=== PATIENT | male | born 1995 | race American Indian/Alaskan Native ===

== ENCOUNTER 2017-10-19 21:39 | Inpatient (IN) | payer MEDICAID, OTHER ==
[2017-10-19 21:39] VITALS: BMI 53.0
--- NOTE | 2017-10-19 21:57 | ED PDOC ---
HPI: Psych/Substance Abuse Time Seen by Provider: 10/19/17 21:55 Chief Complaint (Nursing): Psychiatric Evaluation Chief Complaint (Provider): crisis eval History Per: Patient Additional Complaint(s): 22 y/o male presents to ED for crisis eval. Patient states he has had suicidal and homicidal ideation for the past several years but he felt worse today so he called Police to be brought here. He is supposed to take psych meds but admits to being non-compliant with his meds for the past month. Patient denies any alcohol or drug use. PMD: none Past Medical History Reviewed: Historical Data, Nursing Documentation, Vital Signs Vital Signs: Last Vital Signs Temp 98.0 F 10/19/17 21:46 Pulse 104 H 10/19/17 21:46 Resp 16 10/19/17 21:46 BP 146/89 10/19/17 21:46 Pulse Ox 98 10/19/17 21:46 - Medical History PMH: Asthma, Depression, Fractures (Left Femur), Sleep Apnea - Surgical History Other surgeries: left knee surgery, ear tubes - Family History Family History: States: No Known Family Hx - Living Arrangements Living Arrangements: With Family - Social History Current smoker - smoking cessation education provided: No Alcohol: None Drugs: Denies - Home Medications Home Medications: Ambulatory Orders Medication Instructions Recorded Duloxetine HCl 1 tab PO BID 01/10/17 - Allergies Allergies/Adverse Reactions: Allergies Allergy/AdvReac Type Severity Reaction Status Date / Time broccoli Allergy RASH Verified 10/19/17 21:46 carrot Allergy RASH Verified 10/19/17 21:46 Penicillins Allergy RASH Verified 10/19/17 21:46 tegaderm Allergy RASH Uncoded 10/19/17 21:46 Review of Systems ROS Statement: Except As Marked, All Systems Reviewed And Found Negative Psych: Positive for: Other (suicidal and homicidal ideation, denies plan) Physical Exam - Reviewed Nursing Documentation Reviewed: Yes Vital Signs Reviewed: Yes - Physical Exam Appears: Positive for: Well, Non-toxic, No Acute Distress Skin: Positive for: Normal Color. Negative for: Rash Eye Exam: Positive for: Normal appearance Cardiovascular/Chest: Positive for: Regular Rate, Rhythm Respiratory: Positive for: Normal Breath Sounds. Negative for: Wheezing Extremity: Positive for: Normal ROM Neurologic/Psych: Positive for: Alert, Oriented - Laboratory Results Result Diagrams: 10/19/17 23:31 08/16/18 23:31 - ECG O2 Sat by Pulse Oximetry: 98 Pulse Ox Interpretation: Normal - Other Rad CXR X-Ray: Interpreted by Me, Viewed By Me X-Ray Interpretation: no acute finding Medical Decision Making Medical Decision Makin22 year old male with suicidal or homicidal ideation. Plan: 1:1 observation Crisis eval CBC CMP BAL UDS UA As per crisis counselor and psychiatrist transportation job titles, Dr. Almanzar, patient does meet criteria for admission. Patient agrees to sign himself in. Disposition - Clinical Impression Clinical Impression: Depression - Patient ED Disposition Is Patient to be Admitted: Transfer of Care - Disposition Disposition: Transfer of Care Disposition Time: 23:51 Condition: STABLE Forms: [employer] [employer] [facility] (Eritrean) Patient Signed Over To: Leona Velasco Handoff Comments: Signed out pending medical clearance and final disposition
[2017-10-19 23:41] LABS: BASO % 0.4 % (0.0-2.0); EOS # 0.1 K/uL (0.0-0.7); EOS % 1.4 % (0.0-4.0); HEMOGLOBIN 14.4 g/dL (12.0-18.0); LYMPH # 0.9 K/uL (1.0-4.3); LYMPH % 22.3 % (20.0-40.0); MEAN CELL VOLUME 80.2 fl (80.0-94.0); MEAN CORPUSCULAR HEMOGLOBIN 26.3 pg (27.0-31.0); MEAN CORPUSCULAR HGB CONC 32.7 g/dL (33.0-37.0); MEAN PLATELET VOLUME 9.5 fl (7.2-11.7); MONO # 0.5 K/uL (0.0-0.8); MONO % 10.9 % (0.0-10.0); NEUT # 2.7 K/uL (1.8-7.0); RBC 5.47 Mil/uL (4.40-5.90); RED CELL DISTRIBUTION WIDTH 13.7 % (11.5-14.5); WHITE BLOOD COUNT 4.2 K/uL (4.8-10.8)
[2017-10-19 23:53] LABS: ALB/GLOB RATIO 1.5 (1.0-2.1); ALBUMIN 4.6 g/dL (3.5-5.0); ALT/SGPT 35 U/L (21-72); AST/SGOT 28 U/L (17-59); BLOOD UREA NITROGEN 9 mg/dl (9-20); CALCIUM 9.9 mg/dL (8.4-10.2); GFR AFRICAN-AMERICAN > 60; GFR NON-AFRICAN AMERICAN > 60
--- NOTE | 2017-10-20 00:03 | ED PDOC ---
- Laboratory Results Result Diagrams: 10/19/17 23:31 10/19/17 23:31 - ECG O2 Sat by Pulse Oximetry: 98 (RA) Pulse Ox Interpretation: Normal Medical Decision Making Medical Decision Making: Case endorsed to press writer, Krista LARES, at 0000 pending urine results/medical clearance for psychiatric admission. Patient to be admitted per Dr Almanzar for depression. Pertinent details reviewed. Patient will remain under 1:1 observation. CBC and CMP grossly unremarkable. Serum Alcohol <10. CXR: NAD as read by LUDA 0030 Repeat HR: 86 Repeat BP: 153/98 EKG ordered. Patient offers no physical complaints at this time. 0110 EKG: NSR @ 75bpm (-) ST elevation (-) ectopy, QTc 395 0155 U/A reviewed and grossly unremarkable Utox reviewed: negative Patient is medically stable for psychiatric admission. Arrangements made for psychiatric admission. Disposition Discussed With Dr.: Berna Almanzar Doctor Will See Patient In The: Hospital Counseled Patient/Family Regarding: Studies Performed, Diagnosis - Clinical Impression Clinical Impression: Depression - POA Present On Arrival: None - Disposition Disposition: Admitted as In-Patient Disposition Time: 02:14 Condition: FAIR Results - Lab Results Lab Results: 10/20/17 10/20/17 10/19/17 00:40 00:40 23:31 WBC 4.2 L RBC 5.47 Hgb 14.4 Hct 43.9 MCV 80.2 MCH 26.3 L MCHC 32.7 L RDW 13.7 Plt Count 193 MPV 9.5 Neut % (Auto) 65.0 Lymph % (Auto) 22.3 [place] % (Auto) 10.9 H Eos % (Auto) 1.4 Baso % (Auto) 0.4 Neut # (Auto) 2.7 Lymph # (Auto) 0.9 L [place] # (Auto) 0.5 Eos # (Auto) 0.1 Baso # (Auto) 0.0 Sodium Potassium Chloride Carbon Dioxide Anion Gap BUN Creatinine Est GFR ( Amer) Est GFR (Non-Af Amer) Random Glucose Calcium Total Bilirubin AST ALT Alkaline Phosphatase Total Protein Albumin Globulin Albumin/Globulin Ratio Urine Color Yellow Urine Clarity Slighty-cloudy Urine pH 7.0 Ur Specific [place] 1.017 Urine Protein Negative Urine Glucose (UA) Neg Urine Ketones Negative Urine Blood Negative Urine Nitrate Negative Urine Bilirubin Negative Urine Urobilinogen 0.2-1.0 Ur Leukocyte Esterase Neg Urine RBC (Auto) 1 Urine Microscopic WBC < 1 Ur Squamous Epith Cells 3 Urine Bacteria Rare Urine Opiates Screen Negative Urine Methadone Screen Negative Ur Barbiturates Screen Negative Ur Phencyclidine Scrn Negative Ur Amphetamines Screen Negative U Benzodiazepines Scrn Negative U Oth Cocaine Metabols Negative U Cannabinoids Screen Negative Alcohol, Quantitative 10/19/17 23:31 WBC RBC Hgb Hct MCV MCH MCHC RDW Plt Count MPV Neut % (Auto) Lymph % (Auto) [place] % (Auto) Eos % (Auto) Baso % (Auto) Neut # (Auto) Lymph # (Auto) [place] # (Auto) Eos # (Auto) Baso # (Auto) Sodium 140 Potassium 4.1 Chloride 99 Carbon Dioxide 32 H Anion Gap 13 BUN 9 Creatinine 0.8 Est GFR ( Amer) > 60 Est GFR (Non-Af Amer) > 60 Random Glucose 97 Calcium 9.9 Total Bilirubin 0.5 AST 28 ALT 35 Alkaline Phosphatase 57 Total Protein 7.6 Albumin 4.6 Globulin 3.0 Albumin/Globulin Ratio 1.5 Urine Color Urine Clarity Urine pH Ur Specific [place] Urine Protein Urine Glucose (UA) Urine Ketones Urine Blood Urine Nitrate Urine Bilirubin Urine Urobilinogen Ur Leukocyte Esterase Urine RBC (Auto) Urine Microscopic WBC Ur Squamous Epith Cells Urine Bacteria Urine Opiates Screen Urine Methadone Screen Ur Barbiturates Screen Ur Phencyclidine Scrn Ur Amphetamines Screen U Benzodiazepines Scrn U Oth Cocaine Metabols U Cannabinoids Screen Alcohol, Quantitative < 10
[2017-10-20 01:05] LABS: SQUAMOUS EPITHIAL 3 /hpf (0-5); URINE BACTERIA RARE (<OCC); URINE BILIRUBIN NEGATIVE (NEGATIVE); URINE BLOOD NEGATIVE (NEGATIVE); URINE CLARITY SLIGHTY-CLOUDY (Clear); URINE COLOR YELLOW (YELLOW); URINE GLUCOSE (UA) NEG (Normal); URINE LEUKOCYTE ESTERASE NEG Leu/uL (Negative); URINE PROTEIN NEGATIVE (NEGATIVE); URINE UROBILINOGEN 0.2-1.0 mg/dL (0.2-1.0)
[2017-10-20 01:20] LABS: OPIATES, UR NEGATIVE (NEGATIVE)
[2017-10-20 01:24] LABS: BARBITURATES, UR NEGATIVE (NEGATIVE); BENZODIAZEPINES, UR NEGATIVE (NEGATIVE); PHENCYCLIDINE, UR NEGATIVE (NEGATIVE)
[2017-10-20 04:32] VITALS: O2SAT 100
[2017-10-20] MEDS ORDERED: Magnesium Hydroxide Susp 30 ml UD PO PRN (04:38)
[2017-10-20] MEDS ORDERED: DiphenhydrAMINE 50 mg/ml Inj IM PRN (04:38)
[2017-10-20] MEDS ORDERED: Alum-Mag Hydrox-Simethicone Susp (30 mL) PO PRN (04:38)
--- NOTE | 2017-10-20 04:55 | PCM.BM ---
<Karissa Kitchenar - Last Filed: 10/20/17 04:47> Treatment Plan Problems - Problems identified on initial assessmt Feeling of Worthlessness Date Initiated: 10/20/17 Time Initiated: 04:48 Assessment reference: NA Status: Active Priority: 1 Medication Nonadherence Date Initiated: 10/20/17 Time Initiated: 04:48 Assessment reference: NA Status: Active Priority: 2 Treatment assets and liabiliti Patient Assests: adapts well, cooperative, resourceful, good support system, negotiates basic needs Patient Liabilities: other (non compliance to medications, learning disability) - Milieu Protocol Maintain good personal hygiene: daily Encourage regular showers, daily Remind patient to perform daily oral care, daily Assist patient to perform ADL's Maintain personal safety: every shift Educate patient to report safety concerns to staff, every shift Monitor environment for contraband/sharps Medication safety: Monitor for expected outcome, potential side effects: every shift, Assess barriers to learning: every shift, Assess readiness for medication education: every shift <Peterson Guerrero - Last Filed: 10/23/17 14:59> Family Contact Family involvement: Family/SO is involved Family contact: Patient declines to allow family contact at present Family contact name: Pt denied. Family contacted how many times per week?: 0 - Outside Agency Agency 1 Care involvment: Not involved Agency contact name: [facility] Agency contact number: [phone] - Goals for Treatment Patient goals for treatment: Pt offered any goals for treatment, yet asked to be referred to another outpatient treatment provider. Discharge/Continuing Care - Education Needs Education Needs: Patient Medication, Patient Diagnosis/Disease Process, Patient Coping Skills, Patient Community resources, Patient Aftercare Safety Plan - Discharge Discharge Criteria: Tolerates medication w/o severe side effects, Free of Suicidal thoughts, Free of Homicidal thoughts, Free of agitation, Normal sleep pattern, Reduction of target symptoms Discharge to:: Home, With Family - Treatment Team Participation Patient/Family/SO Statement: 10/23/17 15:01 Pt reported that he is feeling better and is motivated to learn better coping skills to better handle his stressors in life. Pt requested a letter of hospitalization for school. Staff explained 48 hour notice and intention to discharge pt on 10/24/17. Analytical Statistician informed pt that intake packet was faxed to Noelle Salazar at [facility]. Discussed with Family/SO: No Was Patient/Family/SO present at Treatment Team Meeting: Yes <Beran Almanzar - Last Filed: 10/24/17 12:58> - Diagnosis (1) Depression Status: Acute Interventions: psychotherapy, pharmacotherapy 10/24/17 11:34
[2017-10-20 06:59] LABS: T4 8.31 ug/dl (5.5-11.0)
--- NOTE | 2017-10-20 08:30 | CARD ---
APPROVED REPORT Date of service: 10/20/2017 <Conclusion> Normal sinus rhythm Normal ECG
--- NOTE | 2017-10-20 08:53 | PCM.PSYCH ---
Initial Psychiatric Evaluation - Initial Psychiatric Evaluation Type of Admission: Voluntary Legal Status: Capacity Chief Complaint (in patient's own words): "I was having suicidal thoughts." Patient's Reaction to Hospitalization: HPI: 22 yo male w/ h/o Bipolar disorder vs MDD, ADHD, remote history of psychosis, presents w/ worsening depression and anxiety, suicidal ideation w/ plan to cut his wrists, feelings of helplessness/hopelessness, sleep/appetite disturbances, in the context of non-compliance with medications. Denies AH/VH/ paranoia/delusions. Patient does not want to restart Duloxetine or Lexapro. As per ER report: Collateral information obtained from the pt.s mother, Claudia Chamberlain, ([phone]) who reported that she called the police because the pt. expressed SI., also reporting that the pt. said he was depressed and suggested that he wanted to be with his uncle that . The pt.s mother also reported that the pt. expressed that he is overwhelmed by his current life stressors. The pt.s mother reported that the pt. was advised to attend [facility] but does not attend consistently. The pt.s mother reported that the pt. would benefit from inpatient treatment. The pt.s mother reported that the pt. does not take his psychotropic medications consistently. PPHx: Outpatient psychiatric treatment w. Dr. Stoddard; non-compliant w/ Duloxetine and Lexapro; he reports compliance with Vyvanse, h/o previous psychiatric admission including at [facility]; h/o SA in 02/2017 by OD of 4-5 pills of Ambien; Patient reports that providers have recommended he take [place] in the past but he has not been agreeable, "I don't take medications on the periodic table." PMHx: Asthma, Obesity; h/o breaking L femur and subsequently having surgery in 2011 ALL: Broccoli, Carrot, PCN, Tegaderm, [place] SHx: lives w/ mothers; unemployed; denies drug/etoh/cig use FHx: Mother w/ Bipolar disorder Current Medications: Active Medications Generic Name Dose Route Start Last Admin Trade Name Freq PRN Reason Stop Dose Admin Acetaminophen 650 mg 10/20/17 04:38 Tylenol 325mg Tab PO Q4 PRN for pain 4-7 Al Hydrox/Mg Hydrox/Simethicone 30 ml 08/17/18 04:38 Maalox Plus 30 Ml PO Q4 PRN Dyspepsia Diphenhydramine HCl 50 mg 10/20/17 04:38 Benadryl IM Q6 PRN Extrapyramidal S/S Unable PO Diphenhydramine HCl 50 mg 10/20/17 04:38 Benadryl PO Q6 PRN Extrapyramidal Symptoms Diphenhydramine HCl 50 mg 10/20/17 04:38 Benadryl PO HS PRN Sleep Haloperidol 5 mg 10/20/17 04:38 Haldol PO Q4 PRN Agitation Haloperidol Lactate 5 mg 10/20/17 04:38 Haldol IM Q4 PRN Agitation, Unable to Take PO Lorazepam 2 mg 10/20/17 04:38 Ativan IM Q8 PRN Anxiety/Agitation,Unable PO Lorazepam 2 mg 10/20/17 04:38 Ativan PO Q8 PRN Anxiety/Agitation Magnesium Hydroxide 30 ml 10/20/17 04:38 Milk Of Magnesia PO HS PRN Constipation Past Psychiatric History - Past Psychiatric History Pertinent Medical Hx (Current Medical&Sleep Prob, Allergies): Allergies Allergy/AdvReac Type Severity Reaction Status Date / Time broccoli Allergy RASH Verified 10/19/17 21:46 carrot Allergy RASH Verified 10/19/17 21:46 Penicillins Allergy RASH Verified 10/19/17 21:46 tegaderm Allergy RASH Uncoded 10/19/17 21:46 Duloxetine HCl 1 tab PO BID 01/10/17 Escitalopram [Lexapro] 10 mg PO QAM 10/20/17 Lisdexamfetamine Dimesylate [Vyvanse] 30 mg PO QAM 10/20/17 Review of Systems - Psychiatric Psychiatric: As Per HPI, Abnormal Sleep Pattern, Anhedonia, Anxiety, Change in Appetite, Depression, Difficulty Concentrating, Irritability, Suicidal Ideation Mental Status Examination - Personal Presentation Personal Presentation: Looks stated age - Affect Affect: Constricted, Depressed - Motor Activity Motor Activity: Calm - Reliability in Providing Information Reliability in Providing Information: Fair - Speech Speech: Organized - Mood Mood: Depressed - Formal Thought Process Formal Thought Process: No Impairment - Hallucinations/Delusions Additional comments: Denies AH/VH/paranoia/delusions - Obsessions/Compulsions Obsessions: No Compulsions: No - Cognitive Functions Orientation: Person, Place, Situation, Time Sensorium: Alert Attention/Concentration: Attentive Estimate of Intelligence: Average Judgement: Intact, as evidence by: Insight regarding need for hospitalization Memory: Recent intact, as evidence by: Ability to recall events of the day, Remote intact, as evidenced by: Abilit to recall sig. life events, Remote intact , as evidenced by: Ability to recall historical events - Risk Risk: Diminished functioning - Strength & Assets Inventory Strength & Assets Inventory: Cooperative DSM 5 DX - DSM 5 DSM 5 Diagnosis: Bipolar Disorder vs MDD; ADHD - Recommended/Plan of Treatment Treatment Recommendations and Plan of Treatment: Bipolar Disorder vs MDD; ADHD -Admit to psychiatry unit -Individual and group therapy -Start Abdon Morrison -Psychoeducation -Disposition planning Projected ELOS: 7-10 days Discharge Plan and Discharge Criteria: Discharge when patient is psychiatrically stable - Smoking Cessation Smoking Cessation Initiated: No Reason for not providing: Not indicated
--- NOTE | 2017-10-20 10:06 | RAD ---
Date of service: 10/19/2017 HISTORY: clearance COMPARISON: 12/07/2011 FINDINGS: LUNGS: No active pulmonary disease. PLEURA: No significant pleural effusion identified, no pneumothorax apparent. CARDIOVASCULAR: Normal. OSSEOUS STRUCTURES: No significant abnormalities. VISUALIZED UPPER ABDOMEN: Normal. OTHER FINDINGS: None. IMPRESSION: No active disease.
--- NOTE | 2017-10-21 07:56 | PCM.PYCHPN ---
Psychiatric Progress Note - Psychiatric Progress Note Patient seen today, length of contact: Patient evaluated, case discussed with team, chart reviewed Patient Chief Complaint: "I was having suicidal thoughts." Problems Identified/Issues Discussed: Patient continues to feel depressed and despondent. He reports feeling hopeless and thinks no one would miss him if he . He discussed his lack of friends and social support. He denies active suicidal ideation/plan/intent at this time. He denies adverse effects to Abilify. No AH/VH/HI. Medication Change: No Medical Record Reviewed: Yes Consults ordered or reviewed: Medicine consult Mental Status Examination - Cognitive Function Orientation: Person, Place, Situation, Time Memory: Intact Attention: WNL Concentration: WNL Fund of Knowledge: WNL Decription of patient's judgement and insights: Poor I/J - Mood Mood: Depressed - Affect Affect: Constricted, Depressed - Speech Speech: Appropriate - Formal Thought Process Formal Thought Process: No Impairment Psychotic Thoughts and Behaviors: Denies AH/VH/paranoia/delusions - Suicidal Ideation Suicidal Ideation: No - Homicidal Ideation Homicidal Ideation: No Goal/Treatment Plan - Goal/Treatment Plan Need for Continued Stay: Remain at risks for inpatient hospitalization, Severe depression anxiety, Discharge may exacerbated symptoms Progress Toward Problem(s) and Goals/Treatment Plan: Bipolar Disorder vs MDD; ADHD; r/o Personality Disorder -Individual and group therapy -Continue Abdon -Celia Morrison -Psychoeducation -Disposition planning Estimated Date of D/C: 10/26/17
--- NOTE | 2017-10-22 09:41 | PCM.PYCHPN ---
Psychiatric Progress Note - Psychiatric Progress Note Patient seen today, length of contact: Patient evaluated, case discussed with team, chart reviewed Patient Chief Complaint: "I was having suicidal thoughts." Problems Identified/Issues Discussed: Patient continues to feel depressed and anxious, but states that his mood is starting to improve. He is more hopeful for the future. He continues to report intermittent sleep disturbances. He denies active suicidal ideation/ plan/intent at this time. He denies adverse effects to Abilify. No AH/VH/HI. Medication Change: No Medical Record Reviewed: Yes Consults ordered or reviewed: Medicine consult Mental Status Examination - Cognitive Function Orientation: Person, Place, Situation, Time Memory: Intact Attention: WNL Concentration: WNL Fund of Knowledge: WNL Decription of patient's judgement and insights: Improving I/J - Mood Mood: Depressed - Affect Affect: Constricted, Depressed - Speech Speech: Appropriate - Formal Thought Process Formal Thought Process: No Impairment Psychotic Thoughts and Behaviors: Denies AH/VH/paranoia/delusions - Suicidal Ideation Suicidal Ideation: No - Homicidal Ideation Homicidal Ideation: No Goal/Treatment Plan - Goal/Treatment Plan Need for Continued Stay: Remain at risks for inpatient hospitalization, Severe depression anxiety, Discharge may exacerbated symptoms Progress Toward Problem(s) and Goals/Treatment Plan: Bipolar Disorder vs MDD; ADHD; r/o Personality Disorder -Individual and group therapy -Continue Abdon -Celia Morrison -Psychoeducation -Disposition planning Estimated Date of D/C: 10/26/17
--- NOTE | 2017-10-23 07:41 | HP ---
Copied To: Tushar Parikh MD Attending MD: Tushar Parikh MD INITIAL CONSULTATION/HISTORY AND PHYSICAL HISTORY OF PRESENT ILLNESS: This is a 22-year-old male with history of bilateral knee arthritis. The patient also has history of bronchial asthma, which is well-controlled. He was admitted to psychiatry floor for psych decompensation, and medical consultation was called for medical followup while the patient is in the psych unit. Other review of systems is negative. ALLERGIES: POSITIVE FOR PENICILLIN, CARROT, AND BROCCOLI. SOCIAL HISTORY: Denied smoking, ETOH, or substance abuse. FAMILY HISTORY: Noncontributory. MEDICATIONS: Reviewed as per MAY. PHYSICAL EXAMINATION: GENERAL: The patient is in bed, not in any cardiopulmonary distress. VITAL SIGNS: Blood pressure 138/68, temperature 97.9, respiratory rate 18, and pulse 85. HEENT: Pupils equal and reactive to light. Normal-appearing mucosa of the conjunctivae, oropharynx, and nasal membrane mucosa. NECK: Supple. No JVD. No carotid bruits. No lymph nodes. No thyromegaly. CHEST AND LUNGS: Bilateral symmetrical expansion. Good air exchange. No rales, no rhonchi. CARDIOVASCULAR SYSTEM: PMI not localized. S1, S2. No additional sounds. ABDOMEN: Normoactive bowel sounds. No tenderness. No organomegaly. No masses. EXTREMITIES: No cyanosis, no clubbing, no edema. COMMUNITY SERVICE COORDINATOR: Alert, awake, oriented x3. No neurological deficit could be appreciated. ASSESSMENT: 1. History of back pain and osteoarthritis. 2. Obesity. 3. History of bronchial asthma, which is well-controlled. We will give the patient Ventolin p.r.n. for any wheezing or asthma. PLAN: Dietary consult and pain management as needed also and Ventolin. We will follow up with you. Tushar Parikh MD
--- NOTE | 2017-10-23 15:47 | PCM.PYCHPN ---
Psychiatric Progress Note - Psychiatric Progress Note Patient seen today, length of contact: Patient evaluated, case discussed with team, chart reviewed Patient Chief Complaint: I feel better with abilify Problems Identified/Issues Discussed: pt evaluated with treatment team, reported improved mood with abilify, no reported side effects CBT provided and advised pt about healthy coping skills with stress other than self harm, pt agreed to continue with therapy on discharge, denied nay current suicidal or homicidal ideation denied perceptual disturbances DSM 5 Symptoms Update: borderline personality bipolar disorder Medication Change: No Medical Record Reviewed: Yes Mental Status Examination - Cognitive Function Orientation: Person, Place, Situation, Time Memory: Intact Attention: WNL Concentration: WNL Fund of Knowledge: WNL - Mood Mood: Depressed - Affect Affect: Constricted, Depressed - Speech Speech: Appropriate - Formal Thought Process Formal Thought Process: No Impairment Psychotic Thoughts and Behaviors: pt denied perceptual disturbances, non elicited - Suicidal Ideation Suicidal Ideation: No - Homicidal Ideation Homicidal Ideation: No Goal/Treatment Plan - Goal/Treatment Plan Need for Continued Stay: Remain at risks for inpatient hospitalization, Severe depression anxiety, Discharge may exacerbated symptoms Progress Toward Problem(s) and Goals/Treatment Plan: continue with abilify CBT, group and supportive therapy Estimated Date of D/C: 10/26/17
[2017-10-24 09:11] VITALS: BP 134/80; PULSE 89; RESP 18; TEMP 97.3
--- NOTE | 2017-10-24 13:13 | PCM.PYCHDC ---
Mental Status Examination - Mental Status Examination Orientation: Person, Place, Situation Memory: Intact Mood: Neutral Affect: Broad Speech: Appropriate Attention: WNL Concentration: WNL Association: WNL Fund of Knowledge: WNL Formal Thought Process: No Impairment Description of patient's judgement and insight: fair insight and judgment Psychotic Thoughts and Behaviors: pt denied perceptual disturbances, non elicited Suicidal Ideation: No Current Homicidal Ideation?: No Discharge Summary - Discharge Note Reason for Hospitalization: 22 yo male w/ h/o Bipolar disorder vs MDD, ADHD, remote history of psychosis, presents w/ worsening depression and anxiety, suicidal ideation w/ plan to cut his wrists, feelings of helplessness/hopelessness, sleep/appetite disturbances, in the context of non-compliance with medications. Denies AH/VH/paranoia/ delusions. Patient does not want to restart Duloxetine or Lexapro. As per ER report: Collateral information obtained from the pt.s mother, Claudia Chamberlain, ([phone]) who reported that she called the police because the pt. expressed SI., also reporting that the pt. said he was depressed and suggested that he wanted to be with his uncle that . The pt.s mother also reported that the pt. expressed that he is overwhelmed by his current life stressors. The pt.s mother reported that the pt. was advised to attend [facility] but does not attend consistently. The pt.s mother reported that the pt. would benefit from inpatient treatment. The pt.s mother reported that the pt. does not take his psychotropic medications consistently. Consultations:: List each consultation separately and include: 1. Reason for request. 2. Findings. 3. Follow-up Summary of Hospital Course include:: 1. Description of specific treatment plan utilized for patients during their course of treatmen. 2. Summarize the time- course for resolution of acute symptoms and/or regressed behaviors. 3. Describe issues identified and worked on during hospitalization. 4. Describe medication utilized. 5. Describe medical problems identified and treated. 6. Reassessment of suicide risk Summary of Hospital Course: pt on admission was started on abilify for depression, mood stabilization and better impulse control, it was up titrated to 10mg daily CBT provided, discussed with pt healthy coping skills with stress and need to develop alternative thoughts other than self harm pt was compliant with treatment and participated in groups, no reported side effects of medications, on discharge, mental status was stable, pt denied any current thoughts of self harm - Diagnosis (1) Depression Current Visit: Yes Status: Acute - Final Diagnosis (DSM 5) Condition upon Discharge: FAIR DSM 5: bipolar disorder depressed ADD Disposition: HOME/ ROUTINE Follow-up Treatment Plan: [facility] program Prescriptions/Medication Reconciliation: ARIPiprazole [Abilify] 10 mg PO DAILY 30 Days #30 tab - Smoking Cessation Smoking Cessation Medication prescribed: No - Antipsychotic Medications Pt discharged on 2 or more routine antipsychotic medications: No
== END 2017-10-24 16:00 | disposition home or self-care (01) | DRG 430 ==
LOC: H.ER 21:39 → H.ERHOLD 10-20 02:14 → H.PSYCH 10-20 04:31
PROVIDERS: ADMIT Psychiatry & Neurology Psychiatry; ATTEND Psychiatry & Neurology Psychiatry
PROC: GZHZZZZ Group Psychotherapy (ICD-10-PCS; principal; 2017-10-21)
PROC: GZ51ZZZ Individual Psychotherapy, Behavioral (ICD-10-PCS; 2017-10-21)
DX: F31.9 Bipolar disorder, unspecified (principal); F41.9 Anxiety disorder, unspecified; F60.3 Borderline personality disorder; F90.9 Attention-deficit hyperactivity disorder, unspecified type; G47.30 Sleep apnea, unspecified; J45.909 Unspecified asthma, uncomplicated; M17.0 Bilateral primary osteoarthritis of knee; R45.850 Homicidal ideations; R45.851 Suicidal ideations; Z81.8 Family history of other mental and behavioral disorders; Z91.14 Patient's other noncompliance with medication regimen; Z87.81 Personal history of (healed) traumatic fracture; E66.9 Obesity, unspecified

== ENCOUNTER 2017-11-29 13:18 | Emergency (ER) | payer MEDICAID ==
[2017-11-29 13:18] VITALS: BMI 53.0
[2017-11-29 13:26] VITALS: TEMP 98.3; O2SAT 99
[2017-11-29] MEDS ORDERED: Alum-Mag Hydrox-Simethicone Susp (30 mL) PO STA (13:40)
[2017-11-29] MEDS ORDERED: Alum-Mag Hydrox-Simethicone Susp (30 mL) ONE (13:44)
[2017-11-29 14:08] LABS: BASO % 0.7 % (0.0-2.0); EOS # 0.3 K/uL (0.0-0.7); EOS % 3.9 % (0.0-4.0); HEMOGLOBIN 14.6 g/dL (12.0-18.0); LYMPH # 1.9 K/uL (1.0-4.3); LYMPH % 27.6 % (20.0-40.0); MEAN CELL VOLUME 79.2 fl (80.0-94.0); MEAN CORPUSCULAR HEMOGLOBIN 27.1 pg (27.0-31.0); MEAN CORPUSCULAR HGB CONC 34.3 g/dL (33.0-37.0); MONO # 0.6 K/uL (0.0-0.8); NEUT % 58.8 % (50.0-75.0); NRBC % 0.3 % (0.0-0.0); PLATELET COUNT 175 K/uL (130-400); RBC 5.36 Mil/uL (4.40-5.90); RED CELL DISTRIBUTION WIDTH 13.6 % (11.5-14.5); WHITE BLOOD COUNT 6.8 K/uL (4.8-10.8)
[2017-11-29 14:16] LABS: BLOOD UREA NITROGEN 13 mg/dl (9-20); CALCIUM 9.9 mg/dL (8.4-10.2); GFR NON-AFRICAN AMERICAN > 60
--- NOTE | 2017-11-29 14:23 | ED PDOC ---
HPI: Chest Pain Time Seen by Provider: 11/29/17 13:39 Chief Complaint (Nursing): Chest Pain Chief Complaint (Provider): Chest Pain History Per: Patient History/Exam Limitations: no limitations Onset/Duration Of Symptoms: Sudden Onset Current Symptoms Are (Timing): Still Present Additional Complaint(s): 22 year old male, with a past medical history of bipolar disorder, ADHD, asthma, and morbid obesity, presenting via EMS from [facility] for evaluation of chest pain prior to arrival. Patient states sitting down and doing something on his computer after lunch when he had sudden sub-sternal chest pain which he describes as like I got punched in the chest or sticking a knife into your chest and turning. Patient reports pain is associated with some shortness of breath and numbness very specific to the lateral aspect of his forearm. Patient noted that he was doing nothing unusual when the pain began, and he tried to drink water afterwards which exacerbated his pain. Past Medical History Reviewed: Historical Data, Nursing Documentation, Vital Signs Vital Signs: Last Vital Signs Temp 98.3 F 11/29/17 13:22 Pulse 89 11/29/17 13:22 Resp 16 11/29/17 13:22 BP 136/80 11/29/17 13:22 Pulse Ox 99 11/29/17 13:22 - Medical History PMH: Anxiety, Asthma, Bipolar Disorder, Depression, Fractures (Left Femur), Sleep Apnea Denies: Chronic Kidney Disease, Sexually Transmitted Disease - Family History Family History: States: Other Other Family History: Heart disease (grandmother) - Social History Current smoker - smoking cessation education provided: No Alcohol: None Drugs: Denies (cocaine), Cannabis (experimented in the past; not an active user) - Immunization History Hx Tetanus Toxoid Vaccination: No Hx Influenza Vaccination: No Hx Pneumococcal Vaccination: No - Home Medications Home Medications: Ambulatory Orders Medication Instructions Recorded Lisdexamfetamine Dimesylate 40 mg PO QAM 10/20/17 [Vyvanse] ARIPiprazole [Abilify] 15 mg PO BID 11/29/17 Aluminum Hydroxide/Magnesium H 30 ml PO QID PRN #240 ml 11/29/17 [Maalox 30 ml] - Allergies Allergies/Adverse Reactions: Allergies Allergy/AdvReac Type Severity Reaction Status Date / Time broccoli Allergy RASH Verified 11/29/17 13:22 carrot Allergy RASH Verified 11/29/17 13:22 Penicillins Allergy RASH Verified 11/29/17 13:22 tegaderm Allergy RASH Uncoded 11/29/17 13:22 Review of Systems ROS Statement: Except As Marked, All Systems Reviewed And Found Negative Cardiovascular: Positive for: Chest Pain Respiratory: Positive for: Shortness of Breath Neurological: Positive for: Numbness (lateral aspect of left forearm) Physical Exam - Reviewed Nursing Documentation Reviewed: Yes Vital Signs Reviewed: Yes - Physical Exam Appears: Positive for: Well, Non-toxic, No Acute Distress Head Exam: Positive for: ATRAUMATIC, NORMAL INSPECTION, NORMOCEPHALIC Skin: Positive for: Normal Color, Warm, Dry. Negative for: Rash Eye Exam: Positive for: EOMI, Normal appearance, PERRL ENT: Positive for: Normal ENT Inspection Neck: Positive for: Normal, Painless ROM, Supple Cardiovascular/Chest: Positive for: Regular Rate, Rhythm. Negative for: Murmur Respiratory: Positive for: Normal Breath Sounds. Negative for: Respiratory Distress Gastrointestinal/Abdominal: Positive for: Normal Exam, Soft. Negative for: Tenderness Back: Positive for: Normal Inspection. Negative for: L CVA Tenderness, R CVA Tenderness, Vertebral Tenderness Extremity: Positive for: Normal ROM. Negative for: Pedal Edema, Deformity Neurologic/Psych: Positive for: Alert, Oriented. Negative for: Motor/Sensory Deficits - Laboratory Results Result Diagrams: 11/29/17 13:50 11/29/17 13:50 - ECG ECG: Positive for: Interpreted By Me, Viewed By Me Interpretation Of ECG: NSR at 70 BPM, (-) acute ST changes, as read by me. O2 Sat by Pulse Oximetry: 99 (RA) Pulse Ox Interpretation: Normal Medical Decision Making Medical Decision Makin Initial Impression: Atypical chest pain; likely esophageal; r/o acute cardiac pathology Plan: -EKG -BMP -Troponin -CBC -CXR -Maalox 30mL PO -monitoring tech -IV insertion -Reevaluation Scribe Attestation: Documented by Negrito Watson, acting as a scribe for Lizzette Lopez MD. Provider Scribe Attestation: All medical record entries made by the Scribe were at my direction and personally dictated by me. I have reviewed the chart and agree that the record accurately reflects my personal performance of the history, physical exam, medical decision making, and the department course for this patient. I have also personally directed, reviewed, and agree with the discharge instructions and disposition. feeling better after mylanta. labs, ekg and cxr is normal Disposition - Clinical Impression Clinical Impression: Esophageal pain - Patient ED Disposition Is Patient to be Admitted: No Doctor Will See Patient In The: Office Counseled Patient/Family Regarding: Diagnosis - Disposition Disposition: Routine/Home Disposition Time: 14:42 Condition: IMPROVED Prescriptions: Aluminum Hydroxide/Magnesium H [Maalox 30 ml] 30 ml PO QID PRN #240 ml PRN Reason: Pain, Moderate (4-7) Instructions: Acid Reflux (Gastroesophageal Reflux Disease), Adult (DC) Forms: [facility] (Croatian) - POA Present On Arrival: None
--- NOTE | 2017-11-29 14:25 | RAD ---
Date of service: 11/29/2017 HISTORY: [facility] COMPARISON: Chest radiograph dated 10/19/2017. TECHNIQUE: Chest PA and lateral FINDINGS: LUNGS: No active pulmonary disease. PLEURA: No significant pleural effusion identified. No pneumothorax apparent. CARDIOVASCULAR: Normal. OSSEOUS STRUCTURES: No significant abnormalities. VISUALIZED UPPER ABDOMEN: Normal. OTHER FINDINGS: None. IMPRESSION: No active disease.
[2017-11-29 14:50] VITALS: BP 130/84; PULSE 99; RESP 18
[2017-11-29 16:29] LABS: BANDS 1 % (0-2); EOSINOPHIL 3 % (0-7); HYPOCHROMIC SLIGHT; LARGE PLATELETS PRESENT; LYMPHOCYTE 35 % (20-50); MONOCYTE 9 % (0-10); NEUTROPHIL 52 % (42-75); PLATELET CLUMPS PRESENT; PLATELET ESTIMATE NORMAL (NORMAL); TOTAL CELLS COUNTED 100
--- NOTE | 2017-11-30 22:03 | CARD ---
APPROVED REPORT Date of service: 11/29/2017 EKG Measurement Heart [id number] <Conclusion> Normal sinus rhythm Normal ECG
== END 2017-11-29 14:45 | disposition home or self-care (01) ==
LOC: H.ER 13:18
DX: K22.8 Other specified diseases of esophagus (principal)